=== PATIENT | male | born 1950 | race Caucasian/White ===

== ENCOUNTER 2018-04-25 23:43 | Emergency (ER) | payer MEDICARE, OTHER ==
[2018-04-26] MEDS ORDERED: KETOROLAC 30 MG/ML 1 ML VIAL IVP STA (00:35)
[2018-04-26] MEDS ORDERED: SODIUM CHLORIDE 0.9% 1,000 ML IV ONE (00:35)
[2018-04-26] MEDS ORDERED: ONDANSETRON 4 MG/2 ML VIAL IVP STA (00:35)
--- NOTE | 2018-04-26 00:45 | ED ---
Back Pain HPI - General Chief Complaint: Back Pain/Injury Stated Complaint: lower back pain Time Seen by Provider: 04/26/18 00:13 Source: patient Limitations: no limitations - History of Present Illness Initial Comments: 67-year-old male patient presents to the emergency department today for evaluation of right mid back pain. Patient states his been going on for the last 4-5 days. States that the pain is an aching intense pain. States that it worsened significantly tonight. States that the pain has caused him to be nauseated he has not vomited. He denies any history of similar pain but states he did have a kidney stone once in the past. He denies any radiation of the pain down his legs. Denies any loss of bowel or bladder control. Denies any saddle anesthesia. He denies any radiation of the pain into his abdomen. Denies any fever or chills. Denies any hematuria, dysuria, urinary frequency, urinary urgency. Denies any injury to the back. Patient denies any recent rash , shortness breath, chest pain, diarrhea, constipation, back pain, numbness, tingling, dizziness, weakness, headache, visual changes, or any other complaints. - Related Data Previous Rx's Medication Instructions Recorded Cyclobenzaprine [Flexeril] 10 mg PO TID #15 tab 04/26/18 Hydrocodone/Acetaminophen [[place] 1 tab PO Q6HR PRN #12 tab 04/26/18 5-325] Allergies Allergy/AdvReac Type Severity Reaction Status Date / Time No Known Allergies Allergy Verified 04/25/18 23:58 Review of Systems ROS Statement: Those systems with pertinent positive or pertinent negative responses have been documented in the HPI. ROS Other: All systems not noted in ROS Statement are negative. Past Medical History Past Medical History: Cancer, Diabetes Mellitus, Hypertension Additional Past Medical History / Comment(s): kidney and stomach cancer History of Any Multi-Drug Resistant Organisms: None Reported Past Surgical History: Tonsillectomy Additional Past Surgical History / Comment(s): whipple Past Psychological History: No Psychological Hx Reported Smoking Status: Never smoker Past Alcohol Use History: Occasional Past Drug Use History: None Reported General Exam Limitations: no limitations General appearance: alert, in no apparent distress, other (This is a well- developed, well-nourished adult male patient in no acute distress. Vital signs upon presentation are temperature 98.7F, pulse 76, respirations 18) Eye exam: Present: normal appearance, PERRL, EOMI. Absent: scleral icterus, conjunctival injection, periorbital swelling ENT exam: Present: normal exam, normal oropharynx, mucous membranes moist Respiratory exam: Present: normal lung sounds bilaterally. Absent: respiratory distress, wheezes, rales, rhonchi, stridor Cardiovascular Exam: Present: regular rate, normal rhythm, normal heart sounds. Absent: systolic murmur, diastolic murmur, rubs, gallop, clicks GI/Abdominal exam: Present: soft, normal bowel sounds. Absent: distended, tenderness, guarding, rebound, rigid Back exam: Present: normal inspection. Absent: CVA tenderness (R), CVA tenderness (L) Neurological exam: Present: alert, oriented X3, CN II-XII intact Psychiatric exam: Present: normal affect, normal mood Skin exam: Present: warm, dry, intact, normal color. Absent: rash Course Vital Signs 04/25/18 04/26/18 04/26/18 23:58 01:15 02:18 Temperature 98.7 F 97.4 F L Pulse Rate 76 70 70 Respiratory 18 16 18 Rate Blood Pressure 167/96 169/91 174/87 O2 Sat by Pulse 97 96 97 Oximetry 04/26/18 02:20 Temperature 97.8 F Pulse Rate Respiratory Rate Blood Pressure O2 Sat by Pulse Oximetry Medical Decision Making - Medical Decision Making 67-year-old male patient presents to the emergency department today for evaluation of mid right back pain. Physical examination is relatively unremarkable. Patient had no spinal tenderness, no paraspinal tenderness. Patient does have history of kidney stones we did perform labs which showed a normal kidney function and no presence of blood in the urine. I did discuss findings and results with the patient. We did discuss this back pain is most likely musculoskeletal in nature. Patient will be given up her prescription for pain medication and muscle relaxants. He is instructed to apply warm moist heat. He is instructed to follow-up with his primary care physician for recheck in 1-2 days. Return parameters discussed in detail. He verbalizes understanding and agrees with this plan. - Lab Data Result diagrams: 04/26/18 00:52 04/26/18 00:52 Lab Results 04/26/18 04/26/18 04/26/18 Range/Units 00:52 00:52 00:52 WBC 7.9 (3.8-10.6) k/uL RBC 4.71 (4.30-5.90) m/uL Hgb 13.8 (13.0-17.5) gm/dL Hct 41.1 (39.0-53.0) % MCV 87.2 (80.0-100.0) fL MCH 29.3 (25.0-35.0) pg MCHC 33.6 (31.0-37.0) g/dL RDW 14.1 (11.5-15.5) % Plt Count 165 (150-450) k/uL Neutrophils % 73 % Lymphocytes % 16 % Monocytes % 7 % Eosinophils % 3 % Basophils % 0 % Neutrophils # 5.7 (1.3-7.7) k/uL Lymphocytes # 1.2 (1.0-4.8) k/uL Monocytes # 0.5 (0-1.0) k/uL Eosinophils # 0.2 (0-0.7) k/uL Basophils # 0.0 (0-0.2) k/uL Sodium 142 (137-145) mmol/L Potassium 3.9 (3.5-5.1) mmol/L Chloride 107 (98-107) mmol/L Carbon Dioxide 23 (22-30) mmol/L Anion Gap 12 mmol/L BUN 18 (9-20) mg/dL Creatinine 1.12 (0.66-1.25) mg/dL Est GFR (CKD-EPI)AfAm 79 (>60 ml/min/1.73 sqM) Est GFR (CKD-EPI)NonAf 68 (>60 ml/min/1.73 sqM) Glucose 96 (74-99) mg/dL Calcium 8.8 (8.4-10.2) mg/dL Total Bilirubin 0.6 (0.2-1.3) mg/dL AST 36 (17-59) U/L ALT 42 (21-72) U/L Alkaline Phosphatase 90 (38-126) U/L Total Protein 6.4 (6.3-8.2) g/dL Albumin 3.8 (3.5-5.0) g/dL Amylase <30 L (30-110) U/L Lipase <10 L (23-300) U/L Urine Color Yellow Urine Appearance Clear (Clear) Urine pH 6.0 (5.0-8.0) Ur Specific Burt 1.017 (1.001-1.035) Urine Protein 2+ H (Negative) Urine Glucose (UA) Negative (Negative) Urine Ketones Negative (Negative) Urine Blood Negative (Negative) Urine Nitrite Negative (Negative) Urine Bilirubin Negative (Negative) Urine Urobilinogen <2.0 (<2.0) mg/dL Ur Leukocyte Esterase Negative (Negative) Urine RBC 1 (0-5) /hpf Urine WBC 1 (0-5) /hpf Hyaline Casts 34 H (0-2) /lpf Urine Mucus Rare H (None) /hpf Disposition Clinical Impression: Acute low back pain Disposition: HOME SELF-CARE Condition: Good Instructions: Acute Low Back Pain (ED) Additional Instructions: Apply warm moist heat to the painful areas as needed. Take medications as directed. Follow-up with her primary care physician for recheck in 1-2 days. Return here immediately for any new, worsening, or concerning symptoms. Prescriptions: Cyclobenzaprine [Flexeril] 10 mg PO TID #15 tab Hydrocodone/Acetaminophen [[place] 5-325] 1 tab PO Q6HR PRN #12 tab PRN Reason: Pain Is patient prescribed a controlled substance at d/c from ED?: Yes When asked, does pt state using other controlled substances?: Yes If prescribed controlled substance>3 days was MAPS reviewed?: Prescribed <3 Days If opioid is for acute pain is fill amount 7 days or less?: Yes If Rx opioid, was Start Talking consent form obtained?: Yes Referrals: Nonstaff,Physician [Primary Care Provider] - 1-2 days Time of Disposition: 02:03
[2018-04-26 01:16] VITALS: PULSE 70
[2018-04-26 01:19] LABS: Basophils % (A) 0 %; Eosinophils # (A) 0.2 k/uL (0-0.7); Eosinophils % (A) 3 %; HCT 41.1 % (39.0-53.0); HGB 13.8 gm/dL (13.0-17.5); Lymphocytes # (A) 1.2 k/uL (1.0-4.8); Lymphocytes % (A) 16 %; MCH 29.3 pg (25.0-35.0); MCHC 33.6 g/dL (31.0-37.0); MCV 87.2 fL (80.0-100.0); Mean Platelet Volume 7.5; Monocytes # (A) 0.5 k/uL (0-1.0); Monocytes % (A) 7 %; Neutrophils # (A) 5.7 k/uL (1.3-7.7); Neutrophils % (A) 73 %; Platelet Count 165 k/uL (150-450); RBC 4.71 m/uL (4.30-5.90); RDW 14.1 % (11.5-15.5); WBC 7.9 k/uL (3.8-10.6)
[2018-04-26 01:20] LABS: Appearance,Urine Clear (Clear); Bilirubin,Urine Negative (Negative); Blood,Urine Negative (Negative); Color,Urine Yellow; Glucose,Urine (UA) Negative (Negative); Hyaline Casts,Urine 34 /lpf (0-2); Ketones,Urine Negative (Negative); Leukocyte Esterase,Urine Negative (Negative); Mucus,Urine Rare /hpf; Nitrite,Urine Negative (Negative); Protein,Urine 2+ (Negative); RBC,Urine 1 /hpf (0-5); Specific Gravity,Urine 1.017 (1.001-1.035); Urobilinogen,Urine <2.0 mg/dL (<2.0); WBC,Urine 1 /hpf (0-5)
[2018-04-26 01:34] LABS: ALT 42 U/L (21-72); AST 36 U/L (17-59); Albumin 3.8 g/dL (3.5-5.0); Alkaline Phosphatase 90 U/L (38-126); Amylase <30 U/L (30-110); Anion Gap 12 mmol/L; Blood Urea Nitrogen 18 mg/dL (9-20); Calcium 8.8 mg/dL (8.4-10.2); Carbon Dioxide 23 mmol/L (22-30); Chloride 107 mmol/L (98-107); Glucose 96 mg/dL (74-99); Lipase <10 U/L (23-300); Potassium 3.9 mmol/L (3.5-5.1); Sodium 142 mmol/L (137-145); Total Bilirubin 0.6 mg/dL (0.2-1.3); Total Protein 6.4 g/dL (6.3-8.2)
[2018-04-26] MEDS ORDERED: MORPHINE SULFATE 2 MG/ML SYRINGE IVP STA (02:02)
[2018-04-26 02:19] VITALS: BP 174/87; RESP 18
[2018-04-26 02:21] VITALS: TEMP 97.8
== END 2018-04-26 02:21 | disposition home or self-care (01) ==
LOC: EC 23:43
DX: M54.5 Low back pain (principal); R11.0 Nausea; Z85.528 Personal history of other malignant neoplasm of kidney; Z85.028 Personal history of other malignant neoplasm of stomach; Z87.442 Personal history of urinary calculi
CPT/HCPCS: 36415; 80053; 81001; 82150; 83690; 85025; 93005; 96361; 96374; 96375; 99284